=== PATIENT | female | born 1970 | race Caucasian/White ===

== ENCOUNTER 2018-01-23 09:27 | Emergency (ER) | payer OTHER, SELFPAY ==
[2018-01-23 09:51] VITALS: BP 127/76; PULSE 70; RESP 14; TEMP 36.6; O2SAT 99
--- NOTE | 2018-01-23 09:54 | DI.RAD.S_ITS ---
PROCEDURE: XR SHOULDER RT MIN 2V INDICATIONS: fall, bruising to shoulder and posterior clavical area. TECHNIQUE: 3 views of the shoulder were acquired. COMPARISON: None FINDINGS: Bones: There is widening of the a.c. joint and elevation of the distal clavicle. The coracoclavicular distance is increased at 2.4 cm. Glenohumeral joint appears intact. No fractures or dislocations. No suspicious bony lesions. Visualized ribs appear intact. Soft tissues: No suspicious soft tissue calcifications. IMPRESSION: 1. Negative for fracture. 2. Third degree a.c. separation right shoulder. Dictated by: Amanuel Nielsen M.D. on 01/23/2018 at 10:15 Approved by: Amanuel Nielsen M.D. on 01/23/2018 at 10:18
--- NOTE | 2018-01-23 10:29 | ED.UPPEXIN ---
HPI - Extremity Injury (Upper) General Chief Complaint: Extremity Injury, Upper Stated Complaint: FALL, CLAVICLE FRACTURE Time Seen by Provider: 01/23/18 09:36 Source: patient Mode of arrival: ambulatory Limitations: no limitations History of Present Illness HPI narrative: Patient presents to the emergency department with chief complaint of right shoulder pain after mechanical fall yesterday. She has increasing pain with range of motion and improvement with rest. She denies other injury. She denies numbness, tingling or weakness MD complaint: injury to: right and shoulder Onset (ago): day(s) Other injuries: none Handedness: right Place: home Severity: moderate Relieving factors: immobilization Exacerbating factors: movement of extremity Context: direct blow Related Data Home Medications Medication Instructions Recorded Confirmed clonazepam 0.5 mg PO TID 01/23/18 01/23/18 sertraline 150 mg PO DAILY PRN 01/23/18 01/23/18 trazodone 25 - 50 mg PO BEDTIME PRN 01/23/18 01/23/18 Allergies Allergy/AdvReac Type Severity Reaction Status Date / Time No Known Drug Allergies Allergy Verified 01/23/18 09:55 Review of Systems Review of Systems All systems reviewed & are unremarkable except as noted in HPI and below Constitutional Denies chills, Denies fever(s), Denies lethargy and Denies weakness Eyes Denies change in vision, Denies eye discharge, Denies irritation and Denies loss of vision ENT Ears, Nose, Mouth, and Throat: Denies change in voice, Denies neck pain and Denies sore throat Cardiovascular Denies chest pain, Denies irregular heart rhythm, Denies lightheadedness, Denies palpitations, Denies dyspnea, Denies dyspnea on exertion and Denies orthopnea Respiratory Denies cough, Denies dyspnea, Denies dyspnea on exertion and Denies wheezing Gastrointestinal Gastrointestinal: Denies abdominal pain, Denies change in bowel habits, Denies diarrhea, Denies nausea and Denies vomiting Genitourinary Denies hematuria, Denies flank pain, Denies urinary incontinence and Denies urinary urgency Musculoskeletal Reports joint swelling, Reports limited range of motion and Denies neck pain Integumentary/Breasts Denies pruritus, Denies erythema, Denies rash and Denies wounds Neurologic Denies confusion, Denies loss of vision and Denies weakness Psychiatric Denies anxiety, Denies confusion, Denies depression, Denies homicidal ideation and Denies suicidal ideation Endocrine Denies palpitations Hematologic/Lymphatic Denies easy bruising Allergic/Immunologic Denies wheezing [facility] Social History Smoking Status: Never smoker Exam Narrative Exam Narrative: 39-year-old female in obvious pain, splinting her right arm Initial Vital Signs Initial Vital Signs: Vital Signs Temperature 97.8 F 01/23/18 09:51 Pulse Rate 70 01/23/18 09:51 Respiratory Rate 14 01/23/18 09:51 Blood Pressure 127/76 H 01/23/18 09:51 Pulse Oximetry 99 01/23/18 09:51 Const General: cooperative, well developed and in distress Nutritional Appearance: well nourished Orientation: alert, awake, oriented x3 and not confused HENMS Head: normocephalic and atraumatic Ears: external ears normal and TM's normal bilaterally Nose: external nose normal and No nasal discharge Face and sinus: sinuses nontender, face symmetric, no sinus tenderness and No dry mucous membranes Mouth: oral mucosae normal and moist mucous membranes Teeth and gingiva: dentition normal Throat: tonsils normal and uvula midline Resp Effort & Inspection: normal respiratory effort, able to speak in complete sentences, no respiratory distress and no use of accessory muscles Auscultation: clear to auscultation bilaterally, no rales, no rhonchi and no wheezes Cardio Rate: regular rate Rhythm: regular rhythm Heart Sounds: no click, no gallops, no murmurs and no rubs Pulses: normal peripheral pulses GI Inspection: non-distended Palpation: soft, no hepatosplenomegaly, No guarding, No pulsatile mass and No tender Auscultation: normal bowel sounds Back/Spine/Pelvis Back: No CVA tenderness Cervical Spine: cervical ROM normal and No pain with cervical ROM Thoracic/Lumbar Spine: thoracic and lumbar spine normal to inspection Skin Other: Notable ecchymosis at right shoulder Neuro General: alert, awake and oriented x3 Cognition: normal cognition Speech: speech normal Gait: normal gait Extrem Right upper extremity: shoulder/upper arm (Decreased range of motion secondary to pain. Obvious deformity at acromioclavicular joint. Closed, isolated, neurovascularly intact) Procedures Orthopedic Splinting/Casting Injury #1: Side: right Upper Extremity Injury Location: clavicle and shoulder Upper Extremity Immobilizer: sling/shoulder immobilizer Course Orders Ordered: Discontinued Medications Ketorolac Tromethamine (Toradol) 15 mg IM NOW ONE Stop: 01/23/18 10:45 Last Admin: 01/23/18 10:56 Dose: Not Given Vital Signs - 8 hr 01/23/18 09:51 Temperature 97.8 F Pulse Rate 70 Pulse Rate [Right Radial] 70 Respiratory Rate 14 Blood Pressure 127/76 H Pulse Oximetry 99 Discharge Plan Departure Patient Disposition: Home, Self-Care Clinical Impression: AC separation, type 3 Discharge Date/Time: 01/23/18 10:58 Interventions: ED Discharge Assessment Last Done: 01/23/18 10:57 Instructions: DI for AC Joint Separation Activity Restrictions/Additional Instructions: *You have been diagnosed with [ right-sided grade 3 AC separation ] *What to do: *Take [id number] ibuprofen and Tylenol as directed *Follow up with Orthopedics in 2-3 days, this degree of AC separation needs orthopedic evaluation for possible surgical repair, rehab, PT, etc *Return to ER if you should have any new, worsening or concerning symptoms Prescriptions: No Action trazodone 50 mg tablet 25 - 50 mg PO BEDTIME PRN (Reason: Sleep) RF: 0 clonazepam 0.5 mg tablet 0.5 mg PO TID RF: 0 sertraline 100 mg tablet 150 mg PO DAILY PRN (Reason: depression) RF: 0 Referrals: Dario Magallanes MD [Physician] - Wiliam Araujo MD [Primary Care Provider] -
== END 2018-01-23 10:58 | disposition home or self-care (01) ==
PROVIDERS: Emergency Provider Emergency Medicine; PCP Family Medicine
DX: S43.109A Unspecified dislocation of unspecified acromioclavicular joint, initial encounter (principal); W19.XXXA Unspecified fall, initial encounter
CPT/HCPCS: 73030; 99283

== ENCOUNTER 2018-02-28 01:21 | Emergency (ER) | payer OTHER, SELFPAY ==
[2018-02-28 01:33] VITALS: BP 158/85; PULSE 109; RESP 16; TEMP 36.6; O2SAT 100
--- NOTE | 2018-02-28 01:34 | PC.NURSE ---
pt refuses to answer triage questions. stating I am a patient and I know my rights. pt presents in handcuffs with [employer] escort. pt is calmly laying on stretcher and refusing all other care after taking vitals.
--- NOTE | 2018-02-28 01:55 | ED.MEDCLEAR ---
HPI - Medical Clearance General Chief complaint: Medical Clearance Stated complaint: Fit for senior living Time Seen by Provider: 02/28/18 01:55 Source: patient and police Mode of arrival: other (police) Limitations: no limitations History of Present Illness HPI Narrative: This patient was arrested several hours ago by the [place] [employer]. She is intoxicated. I am not aware of the situation regarding the arrest. She has been in handcuffs for several hours, she has thrown herself around and banged into several objects. There is no obvious head or neck injury. She has injuries and bruises to her upper arms and her legs. She has a right rotator cuff tear that is not in a sling. She has right shoulder pain. She complains of numbness in her right thumb. There is no head or neck discomfort. She has left anterior rib pain. She denies back pain. She has no abdominal discomfort, nausea vomiting. She has bruises on both lower extremities. Home Medications Medication Instructions Recorded Confirmed clonazepam 0.5 mg PO TID 01/23/18 01/23/18 sertraline 150 mg PO DAILY PRN 01/23/18 01/23/18 trazodone 25 - 50 mg PO BEDTIME PRN 01/23/18 01/23/18 Allergies Allergy/AdvReac Type Severity Reaction Status Date / Time No Known Drug Allergies Allergy Verified 01/23/18 09:55 Review of Systems Review of Systems All systems reviewed & are unremarkable except as noted in HPI and below Constitutional Reports body ache(s), Reports fatigue and Denies headache(s) Eyes Denies change in vision ENT Ears, Nose, Mouth, and Throat: Denies headache(s), Denies neck pain and Reports other (No facial injury.) Cardiovascular Denies chest pain and Denies dyspnea Respiratory Denies dyspnea Gastrointestinal Gastrointestinal: Denies abdominal pain, Denies nausea and Denies vomiting Musculoskeletal Denies back pain, Denies muscle weakness and Denies neck pain Integumentary/Breasts Denies erythema and Reports other Neurologic Denies headache(s) and Reports other (Right thumb numbness.) Endocrine Reports fatigue [facility] Social History Smoking Status: Never smoker Exam Initial Vital Signs Initial Vital Signs: Vital Signs Temperature 97.8 F 02/28/18 01:33 Pulse Rate 109 H 02/28/18 01:33 Respiratory Rate 16 02/28/18 01:33 Blood Pressure 158/85 H 02/28/18 01:33 Pulse Oximetry 100 02/28/18 01:33 Const General: cooperative, healthy appearing, intoxicated appearing and other (Co operative with the evaluation.) Orientation: alert and oriented x3 [facility] Head: normal to inspection, normocephalic and atraumatic Nose: external nose normal Face and sinus: face symmetric Mouth: oral mucosae normal and moist mucous membranes Teeth and gingiva: dentition normal Eyes Conjunctivae: conjunctivae normal Pupils: PERRL Neck Neck: normal visual inspection, full ROM and No tender Chest Chest: other (Tenderness in the left anterior lower ribs. No crepitus or subcu emphysema. No bruising or abrasion. No obvious deformity.) Resp Effort & Inspection: normal respiratory effort, able to speak in complete sentences, no respiratory distress and no use of accessory muscles Auscultation: clear to auscultation bilaterally, no rales, no rhonchi and no wheezes Cardio Rate: regular rate Rhythm: regular rhythm Heart Sounds: S1 normal, S2 normal, no click, no gallops, no murmurs and no rubs Pulses: normal peripheral pulses GI Inspection: non-distended Palpation: soft, no hepatosplenomegaly, No guarding, No pulsatile mass and No tender Auscultation: normal bowel sounds Back/Spine/Pelvis Back: No CVA tenderness Cervical Spine: cervical ROM normal and No pain with cervical ROM Thoracic/Lumbar Spine: thoracic and lumbar spine normal to inspection Skin General: ecchymosis Neuro General: alert, oriented x3, gait normal and no focal motor deficits Speech: speech normal Extrem General: full ROM, no clubbing, cyanosis or edema, no pedal edema, no calf tenderness and other Other: She has right AC discomfort with palpable mild separation. Range of motion in all joints of the upper and lower extremities are intact, except the right shoulder is restricted by pain. There is no dislocation or obvious deformity in the right shoulder. Course Last Vital Signs Temp 97.8 F 02/28/18 01:33 Pulse 109 H 02/28/18 01:33 Resp 16 02/28/18 01:33 BP 158/85 H 02/28/18 01:33 Pulse Ox 100 02/28/18 01:33 Discharge Plan Departure Patient Disposition: Released, Other Clinical Impression: Contusion of multiple sites, Right rotator cuff tear Instructions: Contusion Activity Restrictions/Additional Instructions: Advil 3 tablets every 6 hours as needed for pain. Use a a sling for the right arm as needed. Return here as needed. Prescriptions: No Action trazodone 50 mg tablet 25 - 50 mg PO BEDTIME PRN (Reason: Sleep) RF: 0 clonazepam 0.5 mg tablet 0.5 mg PO TID RF: 0 sertraline 100 mg tablet 150 mg PO DAILY PRN (Reason: depression) RF: 0
--- NOTE | 2018-02-28 02:07 | ED_ITS ---
HPI - Medical Clearance General Chief complaint: Medical Clearance Stated complaint: Fit for shelter Time Seen by Provider: 02/28/18 01:55 Source: patient and police Mode of arrival: other (police) Limitations: no limitations History of Present Illness HPI Narrative: This patient was arrested several hours ago by the [place] [employer]. She is intoxicated. I am not aware of the situation regarding the arrest. She has been in handcuffs for several hours, she has thrown herself around and banged into several objects. There is no obvious head or neck injury. She has injuries and bruises to her upper arms and her legs. She has a right rotator cuff tear that is not in a sling. She has right shoulder pain. She complains of numbness in her right thumb. There is no head or neck discomfort. She has left anterior rib pain. She denies back pain. She has no abdominal discomfort, nausea vomiting. She has bruises on both lower extremities. Home Medications Medication Instructions Recorded Confirmed clonazepam 0.5 mg PO TID 01/23/18 01/23/18 sertraline 150 mg PO DAILY PRN 01/23/18 01/23/18 trazodone 25 - 50 mg PO BEDTIME PRN 01/23/18 01/23/18 Allergies Allergy/AdvReac Type Severity Reaction Status Date / Time No Known Drug Allergies Allergy Verified 01/23/18 09:55 Review of Systems Review of Systems All systems reviewed & are unremarkable except as noted in HPI and below Constitutional Reports body ache(s), Reports fatigue and Denies headache(s) Eyes Denies change in vision ENT Ears, Nose, Mouth, and Throat: Denies headache(s), Denies neck pain and Reports other (No facial injury.) Cardiovascular Denies chest pain and Denies dyspnea Respiratory Denies dyspnea Gastrointestinal Gastrointestinal: Denies abdominal pain, Denies nausea and Denies vomiting Musculoskeletal Denies back pain, Denies muscle weakness and Denies neck pain Integumentary/Breasts Denies erythema and Reports other Neurologic Denies headache(s) and Reports other (Right thumb numbness.) Endocrine Reports fatigue [facility] Social History Smoking Status: Never smoker Exam Initial Vital Signs Initial Vital Signs: Vital Signs Temperature 97.8 F 02/28/18 01:33 Pulse Rate 109 H 02/28/18 01:33 Respiratory Rate 16 02/28/18 01:33 Blood Pressure 158/85 H 02/28/18 01:33 Pulse Oximetry 100 02/28/18 01:33 Const General: cooperative, healthy appearing, intoxicated appearing and other (Co operative with the evaluation.) Orientation: alert and oriented x3 [facility] Head: normal to inspection, normocephalic and atraumatic Nose: external nose normal Face and sinus: face symmetric Mouth: oral mucosae normal and moist mucous membranes Teeth and gingiva: dentition normal Eyes Conjunctivae: conjunctivae normal Pupils: PERRL Neck Neck: normal visual inspection, full ROM and No tender Chest Chest: other (Tenderness in the left anterior lower ribs. No crepitus or subcu emphysema. No bruising or abrasion. No obvious deformity.) Resp Effort & Inspection: normal respiratory effort, able to speak in complete sentences, no respiratory distress and no use of accessory muscles Auscultation: clear to auscultation bilaterally, no rales, no rhonchi and no wheezes Cardio Rate: regular rate Rhythm: regular rhythm Heart Sounds: S1 normal, S2 normal, no click, no gallops, no murmurs and no rubs Pulses: normal peripheral pulses GI Inspection: non-distended Palpation: soft, no hepatosplenomegaly, No guarding, No pulsatile mass and No tender Auscultation: normal bowel sounds Back/Spine/Pelvis Back: No CVA tenderness Cervical Spine: cervical ROM normal and No pain with cervical ROM Thoracic/Lumbar Spine: thoracic and lumbar spine normal to inspection Skin General: ecchymosis Neuro General: alert, oriented x3, gait normal and no focal motor deficits Speech: speech normal Extrem General: full ROM, no clubbing, cyanosis or edema, no pedal edema, no calf tenderness and other Other: She has right AC discomfort with palpable mild separation. Range of motion in all joints of the upper and lower extremities are intact, except the right shoulder is restricted by pain. There is no dislocation or obvious deformity in the right shoulder. Course Last Vital Signs Temp 97.8 F 02/28/18 01:33 Pulse 109 H 02/28/18 01:33 Resp 16 02/28/18 01:33 BP 158/85 H 02/28/18 01:33 Pulse Ox 100 02/28/18 01:33 Discharge Plan Departure Patient Disposition: Released, Other Clinical Impression: Contusion of multiple sites, Right rotator cuff tear Instructions: Contusion Activity Restrictions/Additional Instructions: Advil 3 tablets every 6 hours as needed for pain. Use a a sling for the right arm as needed. Return here as needed. Prescriptions: No Action trazodone 50 mg tablet 25 - 50 mg PO BEDTIME PRN (Reason: Sleep) RF: 0 clonazepam 0.5 mg tablet 0.5 mg PO TID RF: 0 sertraline 100 mg tablet 150 mg PO DAILY PRN (Reason: depression) RF: 0
[2018-02-28] MEDS: KETOROLAC 60 MG/2 ML VIAL IM (02:17)
--- NOTE | 2018-02-28 02:28 | PC.NURSE ---
per provider, wrapped bilateral wrists with kerlex and coban for chafe protection of [employer] handcuffs. Pt reports not too tight, feels ok. Cap refill >2 seconds.
--- NOTE | 2018-02-28 02:31 | PC.NURSE ---
pt requested water and juice. provided 300ml of water and one cranberry juice. pt consumed both completely.
== END 2018-02-28 02:43 | disposition home or self-care (01) ==
PROVIDERS: Emergency Provider Emergency Medicine; PCP Family Medicine
DX: T14.8XXA Other injury of unspecified body region, initial encounter (principal); M75.101 Unspecified rotator cuff tear or rupture of right shoulder, not specified as traumatic; Z00.8 Encounter for other general examination
CPT/HCPCS: 96372; 99282; 99283; J1885

== ENCOUNTER → 2020-05-28 14:43 | Outpatient (CLI) | payer OTHER, SELFPAY ==
--- NOTE | 2020-05-28 | DI.RAD.S_ITS ---
PROCEDURE: XR CHEST 2V INDICATIONS: CXR COUGH TECHNIQUE: 2 views of the chest were acquired. COMPARISON: None. FINDINGS: Surgical changes and devices: None. Lungs and pleura: Lungs are clear. No pleural effusions or pneumothorax. Mediastinum: Mediastinal contours are normal. Heart size is normal. Bones and chest wall: No suspicious bony abnormalities. Soft tissues appear unremarkable. IMPRESSION: No acute pulmonary process. Dictated by: Cee Mckeon M.D. on 05/28/2020 at 16:22 Approved by: Cee Mckeon M.D. on 05/28/2020 at 16:23
--- NOTE | 2020-05-28 | DI.US.S_ITS ---
PROCEDURE: US ABDOMEN COMPLETE INDICATIONS: Abdominal pain TECHNIQUE: Real-time scanning was performed of the abdominal and retroperitoneal organs, with image documentation. COMPARISON: None. FINDINGS: Liver: Liver is normal in size and homogeneous in echotexture. The main portal vein is within normal limits. Gallbladder: Removed. Biliary ducts: Intrahepatic bile ducts are non-dilated. Extrahepatic bile duct caliber measures 4 mm. Normal is 6-7 mm or less in diameter, or 10 mm or less post-cholecystectomy. Pancreas: Visualized portions of the pancreas are sonographically normal. Spleen: Spleen is normal in size and homogeneous in echotexture. Kidneys: Kidneys are normal in size and echotexture. Right kidney measures 10 cm long; left kidney measures 11.2 cm long. No hydronephrosis or nephrolithiasis. No solid masses. Aorta: Visualized aorta is normal in caliber at less than 3 cm. Iliacs: Proximal common iliac arteries are normal in caliber at less than 2.5 cm. IVC: Intrahepatic inferior vena cava is patent. Miscellaneous: No free abdominal fluid. IMPRESSION: No imaging explanation is found for this patient's presenting symptoms. Status post cholecystectomy, without biliary dilatation. Dictated by: Brett Ryan M.D. on 05/28/2020 at 15:01 Approved by: Brett Ryan M.D. on 05/28/2020 at 15:02
== END ==
PROVIDERS: PCP Family Medicine; Referring Provider Family Medicine; Visit Provider Family Medicine
DX: R10.9 Unspecified abdominal pain (principal); R05 Cough; Z90.49 Acquired absence of other specified parts of digestive tract
CPT/HCPCS: 71046; 76700

== ENCOUNTER → 2021-02-19 08:44 | Outpatient (CLI) | payer OTHER, SELFPAY ==
--- NOTE | 2021-02-19 | DI.MRI.S_ITS ---
PROCEDURE: MR LUMBAR SPINE WO CON INDICATIONS: LOW BACK PAIN, CHRONIC TECHNIQUE: Noncontrast sagittal T1 spin echo and T2 fast echo, sagittal STIR, axial T1 and T2 fast spin echo through the lumbar spine. In cases with scoliosis, additional coronal T2 fast spin echo may be performed. COMPARISON: None. FINDINGS: Image quality: Excellent. Alignment and Curvature: There is minimal retrolisthesis seen at the L5-S1 level. Bone Marrow: Marrow is of normal overall signal. No acute vertebral body compression fractures. Spinal Cord: Conus medullaris terminates at the L1 level. Visualized cord demonstrates normal signal and size. Paraspinous Soft Tissues: No paravertebral masses. T12-L1: Normal appearance. L1-L2: Normal appearance. L2-L3: Normal appearance. L3-L4: The disc height and disk signal are well-preserved. Mild generalized disc bulge is seen. Mild to moderate facet hypertrophy is seen. No neural foraminal narrowing is seen. Mild central canal narrowing is seen. L4-L5: The disc height is well-preserved. Loss of disc signal is seen at this level. Mild to moderate disc bulge is seen, which is slightly eccentric to the right. There is a focal annular fissure seen posteriorly. Moderate facet joint hypertrophy is seen. There is [id number] right-sided and mild left-sided neural foraminal narrowing seen. Moderate central canal narrowing is seen. L5-S1: Moderate to severe loss of disc height and disc signal can be seen. Reactive marrow endplate changes are seen, which are hyperintense on T1-weighted and T2-weighted imaging and most consistent with fatty metaplasia (Modic type II changes). Moderate disc bulge is seen, with a mild central disc protrusion. There is a focal annular fissure seen posteriorly. Mild facet joint hypertrophy is seen. Moderate bilateral neural foraminal narrowing is seen. Minimal central canal narrowing is seen. IMPRESSION: Lower lumbar spine degenerative changes are seen, which are worst at the L5-S1 level. Dictated by: Brett Ryan M.D. on 02/19/2021 at 9:10 Approved by: Brett Ryan M.D. on 02/19/2021 at 9:13
== END ==
PROVIDERS: PCP Family Medicine; Referring Provider Family Medicine; Visit Provider Family Medicine
DX: M54.5 Low back pain (principal); M47.817 Spondylosis without myelopathy or radiculopathy, lumbosacral region; G89.29 Other chronic pain
CPT/HCPCS: 72148

== ENCOUNTER → 2021-07-20 07:36 | Outpatient (CLI) | payer OTHER, MEDICAID, SELFPAY ==
--- NOTE | 2021-07-20 | DI.MG.S_ITS ---
BILATERAL DIGITAL SCREENING MAMMOGRAM 3D/2D WITH CAD: 07/20/2021 CLINICAL: Routine screening. Comparison is made to exam dated: 08/14/2013 [facility]. The tissue of both breasts is heterogeneously dense. This may lower the sensitivity of mammography. Current study was also evaluated with a Computer Aided Detection (CAD) system. There is a biopsy clip in the left breast. No significant masses, calcifications, or other findings are seen in either breast. There has been no significant interval change. IMPRESSION: NEGATIVE There is no mammographic evidence of malignancy. A 1 year screening mammogram is recommended. This exam was interpreted at Station ID: [id number]. NOTE: For mammograms, a report in lay terms will be sent to the patient. Approximately 15% of breast malignancies will not be visualized mammographically. In the management of a palpable breast mass, a negative mammogram must not discourage biopsy of a clinically suspicious lesion. Electronically Signed By: Vasile Auguste M.D. at/[email or web address]:07/20/2021 10:56:41 letter sent: Normal Exam ACR BI-RADS Category 1: Negative [id number]
== END ==
PROVIDERS: PCP Family Medicine; Referring Provider Family Medicine; Visit Provider Family Medicine
DX: Z12.31 Encounter for screening mammogram for malignant neoplasm of breast (principal)
CPT/HCPCS: 77063; 77067